=== PATIENT | male | born 1960 | race Caucasian/White ===

== ENCOUNTER 2025-03-22 10:52 | Inpatient (IN) | payer OTHER ==
[2025-03-22 11:09] VITALS: BMI 34.1
[2025-03-22] MEDS ORDERED: guaiFENesin 600 MG TABLET.ER (FP) PO PRN (11:46)
[2025-03-22] MEDS ORDERED: ACETAMINOPHEN 325 MG TABLET (FP) PO PRN (11:46)
[2025-03-22] MEDS ORDERED: MAG HYDROX/AL HYDROX/SIMETH 30 ML UNIT-DOSE CUP PO PRN (11:46)
[2025-03-22] MEDS ORDERED: BENZOCAINE/MENTHOL (CHLORASEPTIC ) LOZENGE MM PRN (11:46)
[2025-03-22] MEDS ORDERED: LOPERAMIDE HCL 2 MG CAPSULE PO PRN (11:46)
[2025-03-22] MEDS ORDERED: ONDANSETRON *ODT* 4 MG TABLET SL PRN (11:46)
[2025-03-22] MEDS ORDERED: BISMUTH SUBSALICYLATE 524 MG/30 ML PO PRN (11:46)
[2025-03-22] MEDS ORDERED: POLYETHYLENE GLYCOL (HEALTHYLAX) 3350 17 GM PACKET PO PRN (11:46)
[2025-03-22] MEDS ORDERED: NALOXONE (NARCAN) HCL 4 MG/0.1 ML SPRAY NS PRN (11:46)
[2025-03-22] MEDS ORDERED: METHOCARBAMOL 500 MG TABLET PO PRN (11:46)
[2025-03-22] MEDS ORDERED: MAGNESIUM HYDROX 2400MG/30ML ORAL SUSPENSION 30 ML CUP PO PRN (11:46)
[2025-03-22] MEDS ORDERED: DICYCLOMINE HCL 10 MG CAPSULE PO PRN (11:46)
[2025-03-22] MEDS ORDERED: hydrOXYzine PAMOATE 25 MG CAPSULE (FP) PO PRN (11:46)
[2025-03-22] MEDS ORDERED: BENZONATATE 200 MG CAPSULE PO PRN (11:46)
[2025-03-22] MEDS ORDERED: IBUPROFEN 400 MG TABLET (FP) PO PRN (11:46)
[2025-03-22] MEDS ORDERED: levETIRAcetam 500 MG TABLET (FP) PO ONE (12:32)
[2025-03-22] MEDS: levETIRAcetam 500 MG TABLET (FP) PO SCH (12:33)
[2025-03-22] MEDS ORDERED: ALBUTEROL SO4 HFA INHALER IH PRN (12:38)
[2025-03-22] MEDS: TIOTROPIUM BROMIDE 2.5 MCG (SPIRIVA) RESPIMAT INHALER IH SCH (17:50)
[2025-03-22] MEDS ORDERED: amLODIPine BESYLATE 5 MG TABLET (FP) PO SCH (19:00)
[2025-03-22] MEDS: amLODIPine BESYLATE 5 MG TABLET (FP) PO SCH (21:31)
[2025-03-22] MEDS: THIAMINE 100 MG TABLET PO SCH (22:31)
[2025-03-22] MEDS: MELATONIN 5 MG TABLETS PO SCH (22:32)
[2025-03-23] MEDS: PRENATAL VITAMINS W/ FOLIC ACID TABLET (FP) PO SCH (10:34)
[2025-03-23] MEDS: TAMSULOSIN HCL 0.4 MG CAP PO SCH (10:35)
[2025-03-23 11:08] LABS: IMMATURE PLATELET FRACTION # 7.00 x10^3/uL; MCHC 34.6 g/dl (32.3-36.5); MEAN CELL VOLUME 106.1 fl (79.0-92.2); MEAN PLT VOLUME 11.4 fl (9.4-12.4); RDW 12.0 % (12.2-16.4)
[2025-03-23 11:09] LABS: GLUCOSE,RANDOM 103 mg/dL (74-106); TOT PROT 7.1 g/dl (6.4-8.2)
[2025-03-23 11:10] LABS: CO2 27 mmol/L (21-32)
[2025-03-23 11:12] LABS: ALK PHOS 54 U/L (40-150)
[2025-03-23 11:15] LABS: CREATININE 0.95 mg/dL (0.55-1.3); SGOT/AST 63 U/L (5-34); SGPT/ALT 31 U/L (0-55)
[2025-03-23] MEDS ORDERED: METOPROLOL TARTRATE 25 MG TABLET (FP) PO ONE (18:07)
[2025-03-23] MEDS: METOPROLOL TARTRATE 25 MG TABLET (FP) PO ONE (20:15)
[2025-03-24] MEDS: MIRTAZAPINE 15 MG TABLET (FP) PO SCH (00:03)
[2025-03-24 12:24] LABS: GLUCOSE,RANDOM 109.0 mg/dL (74-106)
[2025-03-24 12:25] LABS: CO2 24.0 mmol/L (21-32)
[2025-03-24 12:30] LABS: CREATININE 0.91 mg/dL (0.55-1.3)
[2025-03-24 12:46] LABS: TOT PROT 6.8 g/dl (6.4-8.2)
[2025-03-24 12:49] LABS: ALK PHOS 59.0 U/L (40-150)
[2025-03-24 12:51] LABS: SGOT/AST 245.0 U/L (5-34); SGPT/ALT 108.0 U/L (0-55)
[2025-03-24] MEDS: IBUPROFEN 600 MG TABLET (FP) PO PRN (22:09)
[2025-03-25] MEDS: POTASSIUM CHLORIDE ORAL LIQUID 20 MEQ/15 ML PO ONE (15:50)
[2025-03-26 12:01] LABS: GLUCOSE,RANDOM 125.0 mg/dL (74-106); TOT PROT 6.8 g/dl (6.4-8.2)
[2025-03-26 12:02] LABS: CO2 26.0 mmol/L (21-32)
[2025-03-26 12:04] LABS: ALK PHOS 58.0 U/L (40-150)
[2025-03-26 12:07] LABS: CREATININE 0.89 mg/dL (0.55-1.3); SGOT/AST 95.0 U/L (5-34); SGPT/ALT 99.0 U/L (0-55)
[2025-03-26] MEDS: NALTREXONE HCL 50 MG TABLET PO ONE (15:14)
[2025-03-26] MEDS: NALTREXONE MICROSPHERES (VIVITROL) 380 MG DISP.SYRIN IM ONE (19:51)
[2025-03-27 07:07] VITALS: RESP 18
[2025-03-27 08:57] VITALS: BP 141/82; PULSE 89; TEMP 98.1
== END 2025-03-27 09:55 | disposition home or self-care (01) | DRG 897 ==
LOC: YASAS 10:52 → Y6N 15:50
PROVIDERS: ADMIT Neuromusculoskeletal Medicine & OMM; ATTEND Counselor Addiction (Substance Use Disorder)
PROC: HZ2ZZZZ Detoxification Services for Substance Abuse Treatment (ICD-10-PCS; principal; 2025-03-22)
DX: F10.230 Alcohol dependence with withdrawal, uncomplicated (principal); F12.10 Cannabis abuse, uncomplicated; F17.210 Nicotine dependence, cigarettes, uncomplicated; F10.282 Alcohol dependence with alcohol-induced sleep disorder; E87.6 Hypokalemia; I10 Essential (primary) hypertension; J45.909 Unspecified asthma, uncomplicated; N40.0 Benign prostatic hyperplasia without lower urinary tract symptoms; Z91.81 History of falling
CPT/HCPCS: 36415; 80048; 80053; 80076; 80305; 80307; 82607; 84132; 85027; 86780; 93005; 93010; J2315